=== PATIENT | male | born 1970 | race Caucasian/White ===

== ENCOUNTER 2021-06-02 10:15 | Day surgery (SDC) | payer OTHER ==
[2021-06-01 12:20] VITALS: BMI 43.4
[2021-06-02] MEDS ORDERED: Bupivacaine PF 0.5% 30 ML VIAL ONE (10:16)
[2021-06-02] MEDS ORDERED: Lidocaine 1% MPF 2 ML VIAL ONE (10:37)
[2021-06-02] MEDS ORDERED: Lidocaine 2% PF 5 ML VIAL ONE (12:08)
[2021-06-02] MEDS ORDERED: PROPOFOL 20 ML ONE (12:08)
[2021-06-02] MEDS ORDERED: Fentanyl 100 MCG/2 ML VIAL ONE ×2 (12:10→13:08)
[2021-06-02] MEDS ORDERED: PHENYLEPHRINE-NS 100 MCG/ML 10 ML SYRINGE ONE (12:20)
[2021-06-02] MEDS ORDERED: Ondansetron PF 4 MG/2 ML Vial ONE (12:23)
[2021-06-02] MEDS ORDERED: Metoclopramide HCl 10 MG/2 ML VIAL ONE (12:23)
[2021-06-02] MEDS ORDERED: Dexamethasone 4 mg/ml Vial ONE (12:23)
[2021-06-02] MEDS ORDERED: Ketorolac Tromethamine 30 MG/ML VIAL ONE (12:31)
== END 2021-06-02 14:00 | disposition home or self-care (01) ==
LOC: CSHSDC 10:15
PROVIDERS: ATTEND Podiatrist Foot & Ankle Surgery
PROC: 0LBV0ZZ Excision of Right Foot Tendon, Open Approach (ICD-10-PCS; principal; 2021-06-02)
DX: M67.471 Ganglion, right ankle and foot (principal); I10 Essential (primary) hypertension
CPT/HCPCS: 88304; J1100; J1885; J2001; J2405; J2704; J2765; J3010; J3490; S0020